=== PATIENT | female | born 1935 | race Caucasian/White ===

== ENCOUNTER 2021-02-27 14:52 | Emergency (ER) | payer MEDICARE, OTHER ==
[2021-02-27] MEDS ORDERED: Hydrocortisone Sod Succ/PF 100 mg/2 ml Vial ONE (14:54)
[2021-02-27] MEDS ORDERED: Cefepime 2 GM VIAL ONE (15:09)
[2021-02-27 15:30] LABS: Hemoglobin 6.1 g/dL (12.0-15.5); Mean Corpuscular HGB CONC 28.1 g/dL (32.0-36.0); Mean Corpuscular Hemoglobin 29.2 pg (27.0-33.0); Mean Corpuscular Volume 103.8 fl (81.6-98.3); Mean Platelet Volume 12.7 fl (7.4-10.4); Platelet Count 158 10x3/uL (150-450); RBC Distribution Width 18.4 % (11.5-14.5); Red Blood Cell (RBC) Count 2.09 10x6/uL (3.90-5.03); White Blood Cell (WBC) Count 23.1 10x3/uL (3.5-10.5)
[2021-02-27 15:33] LABS: MDiff Complete? YES
[2021-02-27 15:44] LABS: ALT (SGPT) 178 U/L (8-55); AST (SGOT) 792 U/L (5-34); Albumin 1.7 g/dL (3.4-4.8); Alkaline Phosphatase 144 U/L (40-110); BUN (Urea Nitrogen) 116 mg/dL (9.8-20.1); Bilirubin, Total 1.2 mg/dL (0.2-1.2); Calc. Creatinine Clearance 0 mL/min (70-130); Calcium 7.9 mg/dL (7.8-10.44); Chloride 116 mmol/L (98-107); Globulin 2.7 g/dL (2.4-3.5); Glucose 197 mg/dL (83-110); Potassium 5.7 mmol/L (3.5-5.1); Protein, Total 4.4 g/dL (5.8-8.1); Sodium 150 mmol/L (136-145)
[2021-02-27 15:47] LABS: Carbon Dioxide Less than 8 mmol/L (23-31)
[2021-02-27 15:48] LABS: Anisocytosis SLIGHT = 6-15 cells (100X) (0-5/hpf); Lymphocytes 5 % (21-51); Monocytes 4 % (0-10); Myelocyte 1 % (0-0); Neutrophil 90 % (42-75)
[2021-02-27 15:49] LABS: Hypochromia SLIGHT = 6-15 cells (100X) (0-5/hpf); Platelet Morphology Comment Appears Adequate
[2021-02-27 15:54] LABS: Base Excess (BEa) -20.8 mEq/L (-2.0 to +3.0); CO2 Tension 22.7 mmHg (35.0-45.0); Calcium, Ionized (arterial) 1.15 mmol/L (1.12-1.30); Carboxyhemoglobin (COHb) 0.2 gm% (0.0-3.0); Hemoglobin (Hb) 7.1 g/dL (12.0-16.0); O2 Tension (PaO2), arterial 254.8 mmHg (> 60.0); Potassium - ABG Lab 5.5 mmol/L (3.70-5.30); Puncture Site LRA; pH, Arterial 7.11 (7.35-7.45)
[2021-02-27 15:58] LABS: ALV-art Gradient 429.825 mmHg (0-20)
[2021-02-27 17:31] LABS: SARS-CoV-2 NAA Rapid Test Not Detected (NotDetected)
== END 2021-02-27 17:15 | disposition expired ==
LOC: CSHERS 14:52
DX: A41.9 Sepsis, unspecified organism (principal); R65.21 Severe sepsis with septic shock; J96.00 Acute respiratory failure, unspecified whether with hypoxia or hypercapnia; R00.1 Bradycardia, unspecified; K92.2 Gastrointestinal hemorrhage, unspecified; R57.8 Other shock; J44.9 Chronic obstructive pulmonary disease, unspecified; Z20.822 Contact with and (suspected) exposure to COVID-19
CPT/HCPCS: 36600; 71045; 80053; 82805; 82962; 83605; 85025; 87040; U0002; 36415; 36416; 36556; 96365; 96367; 96375; J0692; J1720; J3370